=== PATIENT | male | born 1980 | race African-American/Black ===

== ENCOUNTER 2016-11-13 09:16 | Outpatient (CLI) | payer OTHER | END 2016-11-13 09:17 | disposition home or self-care (01) | LOC: SC 09:16 | PROVIDERS: ATTEND Internal Medicine Pulmonary Disease | DX: G47.30 Sleep apnea, unspecified (principal); R06.83 Snoring; G47.8 Other sleep disorders; G47.10 Hypersomnia, unspecified | CPT/HCPCS: 99203; 99212 ==

== ENCOUNTER 2016-12-15 21:34 | Outpatient (CLI) | payer OTHER | END 2016-12-15 21:35 | disposition home or self-care (01) | LOC: SC 21:34 | PROVIDERS: ATTEND Internal Medicine Pulmonary Disease | DX: G47.61 Periodic limb movement disorder (principal); R09.02 Hypoxemia | CPT/HCPCS: 95810 ==

== ENCOUNTER 2017-01-02 09:24 | Outpatient (CLI) | payer OTHER | END 2017-01-02 09:25 | disposition home or self-care (01) | LOC: SC 09:24 | PROVIDERS: ATTEND Nurse Practitioner Family | DX: G47.61 Periodic limb movement disorder (principal); R09.02 Hypoxemia; R06.83 Snoring | CPT/HCPCS: 99212; 99213 ==